=== PATIENT | male | born 1960 | race Caucasian/White ===

== ENCOUNTER 2017-09-19 11:08 | Emergency (ER) | payer OTHER ==
[~2017-09-19] VITALS: Ht 180.3 cm; Wt 99.8 kg
[2017-09-19] MEDS ORDERED: Naprosyn500 MG PO (11:44)
[2017-09-19] MEDS ORDERED: Kristalose20 GM PO (11:44)
[2017-09-19] MEDS ORDERED: DULOXETINE HCL30 MG PO (12:19)
[2017-09-19] MEDS ORDERED: ACYC400 PO (12:19)
[2017-09-19] MEDS ORDERED: METF500C PO (12:20)
[2017-09-19] MEDS ORDERED: NAPR500EC PO (12:20)
[2017-09-19] MEDS ORDERED: LEVSOD50 PO (12:20)
[2017-09-19] MEDS ORDERED: ALBU2.5V5 NEB (12:21)
== END 2017-09-19 13:14 | disposition home or self-care (01) ==
LOC: ER 11:08
DX: K59.00 Constipation, unspecified (principal); M54.9 Dorsalgia, unspecified; E11.9 Type 2 diabetes mellitus without complications; E03.9 Hypothyroidism, unspecified; J44.9 Chronic obstructive pulmonary disease, unspecified; F17.210 Nicotine dependence, cigarettes, uncomplicated
CPT/HCPCS: 82947; 93005; 93010; 99283